=== PATIENT | female | born 1940 | race Caucasian/White ===

== ENCOUNTER 2016-11-15 05:51 | Inpatient (IN) | payer OTHER ==
[2016-10-26 09:33] VITALS: BMI 29.0
--- NOTE | 2016-10-26 10:04 | PAT Medication Instructions ---
Service Date Oct 26, 2016. 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 Instructions For Your Scheduled Surgery - Hold the following medications 2 weeks prior to surgery: Fish Oil (Solon-3), 1,200 MG PO QAM Turmeric (Curcuma Longa) (Turmeric), 500 MG PO QPM - Hold the following medications 7 days prior to surgery per surgeon's instructions: Meloxicam (Mobic), 15 MG PO QAM Naproxen (Aleve), 440 MG PO PRN - Hold the following medications the morning of surgery: B-Complex Vitamins (Vitamin B Complex), 1 TAB PO QAM Ascorbic Acid (Vitamin C), 500 MG PO QAM Sennosides-Docusate Sodium (Stool Softener), 1 TAB PO HS PRN - Take the following medications the morning of surgery with a sip of water OTHERWISE NOTHING TO EAT OR DRINK AFTER MIDNIGHT: Levothyroxine Sodium (Levothyroxine Sodium), 1 TAB PO QAM [Doxycycline], 20 MG PO BID - Take the following medications as scheduled the night before surgery: Sennosides-Docusate Sodium (Stool Softener), 1 TAB PO HS PRN Simvastatin (Zocor), 40 MG PO QPM [Hydrocodone Apap], 1 TAB PO HS PRN Aspirin (Aspirin Ec), 81 MG PO QPM [Doxycycline], 20 MG PO BID If you have any questions please call us at [phone] or [phone] or [phone]
[2016-10-26 10:54] LABS: BASO % 0.2 %; BASO ABS # 0.01 K/uL (0-0.2); COMPLETE YES; EOS % 3.5 %; HEMATOCRIT 42.5 % (37-47); IG% 0.2 %; LYMPH % 24.5 %; LYMPH ABS # 1.34 K/uL (1.2-3.4); MEAN CELL VOLUME 91.4 fL (80-100); MEAN CORPUSCULAR HEMOGLOBIN 31.6 pg (25-34); MEAN CORPUSCULAR HGB CONC 34.6 g/dl (32-36); MEAN PLATELET VOLUME 12.1 fL (7.4-10.4); MONO % 8.4 %; NEUT % 63.2 %; PLATELET COUNT 258 K/uL (130-400); RED BLOOD COUNT 4.65 M/uL (4.2-5.4); WHITE BLOOD COUNT 5.47 K/uL (4.8-10.8)
[2016-10-26 11:06] LABS: URINE APPEARANCE CLEAR (CLEAR); URINE BILIRUBIN NEG (NEG); URINE COLOR YELLOW; URINE NITRITE NEG (NEG); URINE SPECIFIC GRAVITY 1.003 (1.000-1.030); UROBILINOGEN NEG (NEG)
[2016-10-26 11:07] LABS: PARTIAL THROMBOPLASTIN RATIO 1.1; PROTHROMBIN TIME (PATIENT) 10.8 SECONDS (9.0-12.0)
[2016-10-26 11:07] LABS: MANUAL MICROSCOPIC REQUIRED? NO; REVIEW REQ? NO
[2016-10-26 11:13] LABS: ESTIMATED AVERAGE GLUCOSE 114 mg/dl; HA1C FLAG Normal (Normal)
[2016-10-26 11:19] LABS: BUN/CREATININE RATIO 22.2 (10-20); CALCIUM 9.5 mg/dl (8.5-10.1); CREATININE 0.86 mg/dl (0.60-1.20); POTASSIUM 4.4 mmol/L (3.5-5.1)
--- NOTE | 2016-11-14 11:18 | HISTORY & PHYSICAL EXAMINATION ---
DATE OF ADMISSION: 11/15/2016 CHIEF COMPLAINT: Right knee pain. HISTORY OF PRESENT ILLNESS: The patient is a 76-year-old female seen and evaluated in our office for her right knee pain. She had being treated by an outside physician. She had her right knee arthroscopy approximately 6 months ago. She has had subsequent corticosteroid and viscosupplementation injections. She continues to have ongoing pain and disability. She was seen and evaluated in our office and knee arthroplasty was discussed. Due to her ongoing pain and disability, the patient now desires to proceed with right total knee arthroplasty. PAST MEDICAL HISTORY: Hypercholesterolemia and hyperthyroid PAST SURGICAL HISTORY: Right knee arthroscopy. MEDICATIONS: Include B complex, vitamin, fish oil 1000 mg, Meloxicam 15 mg daily, doxycycline hyclate 20 mg, Aleve 220 mg q. 12 hours p.r.n., simvastatin 40 mg daily, aspirin 81 mg daily, hydrocodone p.r.n. pain, and stool softener p.r.n. ALLERGIES: INCLUDE MERCURY. SOCIAL HISTORY AND REVIEW OF SYSTEMS: Noncontributory. PHYSICAL EXAMINATION: GENERAL: Well-nourished, well-developed elderly female who appears her stated age. HEENT: Normocephalic, atraumatic, extraocular movements intact, oropharynx pink and moist. NECK: Supple without adenopathy. LUNGS: Clear to auscultation bilaterally. HEART: Regular rate and rhythm. ABDOMEN: Soft, nontender, nondistended. EXTREMITIES: The upper extremities are within normal limits. The right knee has a valgus alignment. She complains primarily of lateral compartment pain. Her range of motion is from 0-120 degrees. X-RAYS: X-rays were reviewed. She has a valgus-aligned knee. She has bone on bone arthritis of the lateral compartment with complete loss of the joint space. There is mild degenerative change about the medial and patellofemoral compartments as well. ASSESSMENT: Right knee degenerative joint disease. PLAN: Risks versus benefits were discussed and consent was obtained. Will proceed with right total knee arthroplasty upon preop workup and medical clearance. The patient's primary care physician is Dr. Garcia from [facility]. Will proceed as indicated. [facility]ITAL[facility]
[2016-11-15] VITALS (8 sets, daily range): BP systolic 114–158; BP diastolic 67–85; PULSE 62–76; TEMP 36.4–36.8; O2SAT 95–98; Ht 167.6 cm; Wt 81.1 kg
[~2016-11-15] VITALS: Ht 167.6 cm; Wt 81.1 kg
[~2016-11-15 05:51] MED LIST: ASCO1CAP3 PO; ASPI81TA28 PO; B-COTAB18 PO; DOXYCYCLINE PO; HYDROCODONE APAP PO; LEVO88TA3 PO; MELO7.5T5 PO; NAPR1TAB9 PO; NURSING VERBAL MED ORDER STA; OMEG10007 PO; SENNTAB23 PO; SIMV40TA2 PO; TURM1CAP4 PO
[2016-11-15] MEDS ORDERED: LACTATED RINGER'S 1000ML 500 ML IV ONE (06:00)
[2016-11-15] MEDS ORDERED: LACTATED RINGER'S 1000ML 1,000 ML IV SCH (06:00)
[2016-11-15] MEDS ORDERED: BUPIVACAINE 0.5 % 5 MG/1 ML PF 10ML VIAL ONE (06:22)
[2016-11-15] MEDS ORDERED: BUPIVACAINE 0.25% 30 ML VIAL ONE (06:22)
[2016-11-15] MEDS ORDERED: PROPOFOL IV EMULSION 10 MG/ML 20 ML VIAL IV ONE ×2 (06:42→08:44)
[2016-11-15] MEDS ORDERED: MIDAZOLAM HCL 1 MG/ML 2ML VIAL ONE ×2 (06:42)
[2016-11-15] MEDS ORDERED: CEFAZOLIN IV 2,000 MG/60 ML D5W IV ONE (07:11)
--- NOTE | 2016-11-15 07:14 | History & Physical Bridge Note ---
H&P Re-Evaluation Bridge Note: I have examined the patient, reviewed the History & Physical and in the interval since the performance of the History & Physical I have noted the following changes of clinical significance: No changes noted
[2016-11-15] MEDS ORDERED: BACITRACIN 50000 UNIT VIAL ONE (07:15)
[2016-11-15] MEDS ORDERED: POVIDONE-IODINE OP SOLN 30 ML BTL ONE (07:15)
[2016-11-15] MEDS: TRANEXAMIC ACID AMP 1,000 MG in NSS 100ML IV SCH ×2 (07:43→08:30)
[2016-11-15] MEDS ORDERED: ATROPINE SULFATE 0.1 MG/ML 5ML SYR IV PRN (07:45)
[2016-11-15] MEDS ORDERED: ONDANSETRON INJ 2 MG/ML 2 ML VIAL IV PRN (07:45)
[2016-11-15] MEDS ORDERED: FENTANYL CITRATE INJ 50 MCG/1 ML 2 ML VIAL IV PRN (07:45)
[2016-11-15] MEDS ORDERED: EpHEDrine SULFATE INJ 50 MG/ML AMP IV PRN (07:45)
[2016-11-15] MEDS ORDERED: ROPIVACAINE 5MG/ML 30 ML 150 MG, BUPIVACAINE/EPINEPHR 0.5% MPF 30 ML, KETOROLAC TROMETH... INFIL SCH ×7 (08:00)
[2016-11-15] MEDS ORDERED: ONDANSETRON INJ 2 MG/ML 2 ML VIAL ONE (08:20)
--- NOTE | 2016-11-15 09:04 | [facility] Post Operative Brief Note ---
Immediate Operative Summary Operative Date Nov 15, 2016. 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
--- NOTE | 2016-11-15 09:18 | OPERATIVE REPORT ---
DATE OF OPERATION: 11/15/2016 PREOPERATIVE DIAGNOSIS: Osteoarthritis, right knee. POSTOPERATIVE DIAGNOSIS: Osteoarthritis, right knee. PROCEDURE: Right total knee arthroplasty. SURGEON: Dr. Bright. TARGET MAN: ALBERT Spence. ANESTHESIA: Spinal. COMPLICATIONS: None. OPERATION AND FINDINGS: Following induction of spinal anesthesia, the patient's right leg was prepped and draped in the usual sterile manner. Limb was exsanguinated with an Esmarch bandage and tourniquet was inflated to 350 mmHg. A longitudinal incision was made anteriorly. Subcutaneous tissue was sharply dissected. Electrocautery was used for hemostasis. Prepatellar bursa was incised and median parapatellar incision was performed. Patella was everted and the knee was flexed. Fat pad was removed to aid in visualization and the anterior and posterior cruciate ligaments were removed. The medial face of the tibia was cleared of soft tissue first with a Bovie and a Carrillo elevator. This tissue was retracted posteriorly using a blunt Hohmann. A Munoz retractor was used to expose the synovium above on the anterior aspect of the femur and this was removed down to bone. The PSI guide was placed on the distal femur and two pins were placed anteriorly and kept in position and two additional pins were placed distally and removed. The distal femoral cutting block was placed in position and the distal femoral cut was used in the +0 setting. Next, the cutting block was removed and the 3 block was placed in the distal end of the femur. Care was taken to ensure appropriate external rotation and feeler gauge was used to ensure no notching would occur. The femoral block was centered on the distal femur and in the medial and lateral direction and was fixed using two bone screws. The gold pins were then removed. The oscillating saw was used to create the bone cuts and the distal femoral cutting block was removed and the reciprocating saw was used to further trim the femoral cuts as well as a deep in the area for the trochlear groove. Next, posterior condyle remnants were removed. Following this, a meniscal clamp and knife were utilized to remove the anterior portion of both medial and lateral meniscus. The proximal tibia PSI guide was placed into position and the proximal tibial cutting guide was screwed into position. The extra medullary alignment guide was utilized to ensure appropriate alignment. The proximal tibia was cut and the proximal tibial cutting block was removed and this bone fragment was removed. The appropriate guide was used to perform the notch cut on the distal femur and a lamina associate store director and a cochlear knife were utilized to finish both medial and lateral meniscectomies to remove any remnants of the posterior or anterior cruciate ligaments. Following this, the distal femoral component was impacted into position and blunt Efrem was used to sublux the tibia anteriorly. The proximal tibia was sized and a 3 tibial tray was chosen as the size to be used. This was put into position and appropriate external rotation and a double check with extramedullary alignment guide was performed. The canal for the tibial stem was prepared first with a 17 mm drill and then the punch and a mallet and the trial tibial poly was placed. A 9 was chosen the size to be used. It was brought to extension and the patella was prepared with the patellar reamer. A 36 component was chosen the size to be used. The trial component was placed and knee was taken through a full range of motion and there was found to be no lateral subluxation of the tibia. No lateral release was required. The trials were all removed. The final components were obtained and assembled. Cement was mixed. The knee was thoroughly irrigated and the ortho mix was injected about the knee joint. The final components were cemented into position. After thoroughly suctioning and drying the bone ends, all excess cement was removed. The knee was held in extension while the cement hardened. The wound was irrigated and closed over a Hemovac drain. #1 Vicryl was used to close the extensor mechanism. Subcutaneous tissues closed using 0 Dexon. Skin was closed with bhavna. Sterile dressing of Adaptic, 4 x 4's, sterile Webril, and Edgar was applied. The patient tolerated the procedure well, recovery room stable. Due to the complex nature of the procedure, the entire surgery was performed with the operational assistance of ALBERT Spence. The speech assistant, under direct supervision, was involved in the actual performance of all aspects of the surgical procedure including hemostasis, tissue retraction and incision, instrument management, patient positioning, and wound closure. I attest to the content of the Intraoperative Record and any orders documented therein. Any exceptio ns are noted below.
[2016-11-15] MEDS ORDERED: ALUMINUM/MAGNESIUM/SIMETH (MAALOX MAX) 30 ML UDC PO PRN (09:45)
[2016-11-15] MEDS ORDERED: MoRPHine SULFATE 2 MG/ML CARP IV PRN (09:45)
[2016-11-15] MEDS ORDERED: ZOLPIDEM TARTRATE 5 MG TAB PO PRN (09:45)
[2016-11-15] MEDS ORDERED: BISACODYL 10 MG SUPP PR PRN (09:45)
[2016-11-15] MEDS ORDERED: MAGNESIUM HYDROXIDE SUSP 30 ML UDC PO PRN (09:45)
[2016-11-15] MEDS ORDERED: DiphenhydrAMINE HCL 50 MG/ML VIAL IV PRN (09:45)
--- NOTE | 2016-11-15 10:22 | DIAGNOSTIC IMAGING REPORT ---
RIGHT KNEE 1 OR 2 VIEWS ROUTINE CLINICAL HISTORY: AP/LATERAL IN PACU RIGHT KNEE Right pain COMPARISON: None. DISCUSSION: Total joint replacement. Good contact between prosthetic and underlying bone. Surgical drains are in position. Expected soft tissue postoperative change. IMPRESSION: Anatomic alignment status post total right knee replacement Electronically signed by: Lalo Meyer M.D. 11/15/2016 10:21 AM Dictated Date/Time: 11/15/2016 10:20 AM
[2016-11-15] MEDS ORDERED: MoRPHine SULFATE 10 MG/ML CARP/VIAL IV PRN (11:15)
[2016-11-15] MEDS ORDERED: MoRPHine SULFATE 4 MG/ML 1 ML CARP\\VIAL IV PRN ×2 (11:15)
--- NOTE | 2016-11-15 11:28 | Anesthesiology Progress Note ---
Anesthesia Post Op Note Date & Time Nov 15, 2016 at 11:28 Vital Signs Pain Intensity: 0 Vital Signs Past 12 Hours Date Time Temp Pulse Resp B/P Pulse Ox O2 Delivery O2 Flow Rate FiO2 11/15/16 11:15 63 18 136/68 97 Nasal Cannula 2 11/15/16 11:05 60 20 104/72 97 Nasal Cannula 2 11/15/16 10:55 65 16 136/88 98 Nasal Cannula 2 11/15/16 10:45 36.3 68 22 134/69 97 Nasal Cannula 2 11/15/16 10:35 62 18 119/64 96 Nasal Cannula 2 11/15/16 10:25 64 16 123/63 97 Nasal Cannula 2 11/15/16 10:15 36.3 63 16 126/64 98 Nasal Cannula 2 11/15/16 10:05 63 18 124/63 98 Nasal Cannula 2 11/15/16 09:55 64 12 127/59 98 Nasal Cannula 2 11/15/16 09:45 66 18 124/61 98 Nasal Cannula 2 11/15/16 09:39 36.3 71 20 125/61 98 Nasal Cannula 2 11/15/16 06:30 36.7 70 16 158/85 95 Room Air 11/15/16 06:30 36.8 70 16 158/85 95 Room Air 11/15/16 06:30 36.8 70 16 158/85 95 Room Air Notes Mental Status: alert / awake / arousable, participated in evaluation Pt Amnestic to Procedure: Yes Nausea / Vomiting: adequately controlled Pain: adequately controlled Airway Patency, RR, SpO2: stable & adequate BP & HR: stable & adequate Hydration State: stable & adequate Neuraxial Anesthesia: was administered, sensory block is resolving Anesthetic Complications: no major complications apparent
[2016-11-15] MEDS: FERROUS GLUCONATE 324 MG TAB PO SCH ×2 (12:51→18:28)
[2016-11-15] MEDS: D5W AND 1/2NSS + 20MEQ KCL 1,000 ML IV SCH ×2 (12:51→21:42)
[2016-11-15] MEDS: KETOROLAC TROMETHAMINE 15 MG/ML VIAL IV. SCH ×2 (13:36→19:22)
[2016-11-15] MEDS: ACETAMINOPHEN 500 MG TAB PO SCH ×2 (13:36→21:00)
[2016-11-15] MEDS: CEFAZOLIN IV 2,000 MG in DEXTROSE 5% 50ML 50 ML IV SCH ×2 (15:46→23:18)
[2016-11-15] MEDS: DOCUSATE SODIUM 100 MG CAP PO SCH (21:00)
[2016-11-15] MEDS: ASPIRIN 81 MG ECTAB PO SCH (21:00)
[2016-11-15] MEDS: SIMVASTATIN 40 MG TAB PO SCH (21:00)
[2016-11-15] MEDS: SENNA 8.6 MG TAB PO SCH (21:00)
[2016-11-15] MEDS: OXYCODONE HCL 10 MG TABCR (OXYCONTIN) PO SCH (21:00)
[2016-11-15] MEDS: OXYCODONE HCL IR 5 MG TAB (IMMEDIATE RELEASE) PO PRN (21:41)
[2016-11-16] VITALS (9 sets, daily range): BP systolic 124–175; BP diastolic 70–86; PULSE 57–83; TEMP 36.4–36.7; O2SAT 95–100
[2016-11-16] MEDS: KETOROLAC TROMETHAMINE 15 MG/ML VIAL IV. SCH ×4 (01:52→20:13)
[2016-11-16] MEDS: LEVOTHYROXINE 88 MCG TAB PO SCH (05:46)
[2016-11-16] MEDS: ACETAMINOPHEN 500 MG TAB PO SCH ×3 (05:47→21:22)
[2016-11-16 07:09] LABS: MEAN CELL VOLUME 90.2 fL (80-100); MEAN CORPUSCULAR HEMOGLOBIN 30.7 pg (25-34); MEAN PLATELET VOLUME 11.3 fL (7.4-10.4); PLATELET COUNT 246 K/uL (130-400); RED BLOOD COUNT 3.88 M/uL (4.2-5.4); WHITE BLOOD COUNT 11.44 K/uL (4.8-10.8)
[2016-11-16 07:33] LABS: BUN/CREATININE RATIO 20.1 (10-20); CALCIUM 8.3 mg/dl (8.5-10.1); CREATININE 0.83 mg/dl (0.60-1.20); POTASSIUM 4.1 mmol/L (3.5-5.1)
--- NOTE | 2016-11-16 07:33 | Orthopedic Progress Note ---
Orthopedic Progress Note Date of Service Nov 16, 2016. Subjective Post OP Day: 1 Reports: feeling well Objective N/V intact, dressing C/D/I (Hemovac in place), toes mobile Date Time Temp Pulse Resp B/P Pulse Ox O2 Delivery O2 Flow Rate FiO2 11/16/16 03:31 36.5 62 16 131/71 97 Room Air 11/15/16 23:26 36.6 64 16 131/68 96 Room Air 11/15/16 19:20 Room Air 11/15/16 19:20 36.5 76 16 136/76 96 Room Air 11/15/16 15:00 36.6 65 16 116/74 98 Nasal Cannula 2.0 11/15/16 14:00 36.4 65 16 114/67 98 2.0 11/15/16 12:56 36.6 68 16 118/71 95 Nasal Cannula 2.0 11/15/16 12:29 36.4 62 16 123/73 98 2.0 11/15/16 12:00 98 Nasal Cannula 2.0 11/15/16 12:00 98 Nasal Cannula 2.0 11/15/16 12:00 36.6 69 16 152/82 98 Nasal Cannula 2.0 11/15/16 11:45 36.4 66 14 135/66 97 Nasal Cannula 2 11/15/16 11:35 66 12 138/72 97 Nasal Cannula 2 11/15/16 11:25 36.4 64 18 138/64 98 Nasal Cannula 2 11/15/16 11:15 63 18 136/68 97 Nasal Cannula 2 11/15/16 11:05 60 20 104/72 97 Nasal Cannula 2 11/15/16 10:55 65 16 136/88 98 Nasal Cannula 2 11/15/16 10:45 36.3 68 22 134/69 97 Nasal Cannula 2 11/15/16 10:35 62 18 119/64 96 Nasal Cannula 2 11/15/16 10:25 64 16 123/63 97 Nasal Cannula 2 11/15/16 10:15 36.3 63 16 126/64 98 Nasal Cannula 2 11/15/16 10:05 63 18 124/63 98 Nasal Cannula 2 11/15/16 09:55 64 12 127/59 98 Nasal Cannula 2 11/15/16 09:45 66 18 124/61 98 Nasal Cannula 2 11/15/16 09:39 36.3 71 20 125/61 98 Nasal Cannula 2 Laboratory Results 24 Hours: Test 11/16/16 06:35 Hematocrit 35.0 % Hemoglobin 11.9 g/dL Additional Notes: Bun/Cr pending Assessment & Plan Assessment: 76 yo female stable POD #1 s/p right TKA Plan: 1. Med management 2. DVT prophylaxis- ASA, TEDs, SCDs 3. P/OT 4. D/C planning- pt interested in [facility]
--- NOTE | 2016-11-16 07:34 | Discharge Instructions ---
Discharge Instructions Date of Service Nov 16, 2016. Admission Reason for Admission: Right Knee Osteoarthritis Discharge Discharge Diagnosis / Problem: Right knee arthritis Discharge Goals Goal(s): Decrease discomfort, Improve function Activity Recommendations Activity Limitations: per Instructions/Follow-up section Weightbearing Status: Right weightbearing (as tolerated) . Instructions / Follow-Up Instructions / Follow-Up ACTIVITY RECOMMENDATIONS: SELF CARE INSTRUCTIONS AFTER TOTAL KNEE REPLACEMENT A. You may need to continue a physical therapy program after discharge from the hospital. There are several options available to you. Your doctor will assist you in selecting the best one for you. 1. An out-patient facility 2 to 3 times a week for therapy or home therapy. 2. Continue working on all exercises taught to you in the hospital. Your goals should be to increase bending of your knee to 90 degrees and beyond and to fully straighten your knee. B. You may progress at your own pace from walking with a walker or crutches to a cane; then to no assistive devices. C. Make walking a part of your daily routine. Be up as much as comfortable with rest periods throughout the day. Rest with leg elevation is very important. Use the ice wrap frequently for the first 3-4 weeks. D. There are no restrictions on activities. You may ride in a car, shop, participate in guide delegate and all social activities. E. Wear the long elastic stockings (TERRI hose) 20 hours a day for 2 weeks after surgery. They can be removed several times a day for laundering and for a bath. F. You may shower, no tub baths until cleared by your doctor. SPECIAL CARE INSTRUCTIONS: VERY IMPORTANT TO READ AND REVIEW A. There are a few signs you need to watch for after you are home. Call [facility] if you notice any of the followin. Increased severe knee pain. Some pain is expected especially when you exercise. 2. Increased swelling in your leg or knee; pain or swelling of the calf muscle in either lower leg. 3. Any fluid drainage from the incision. 4. Shortness of breath or chest pain. B. Please call [facility] at if you have any concerns or questions about your operation or recovery. The doctor or his nurse will return your call promptly. C. You must take antibiotics before dental work, bladder, bowel or other surgery. Your doctor will provide you with a permanent care to carry describing this precaution. IMPORTANT: * REMEMBER TO TAKE ASPIRIN, 81 MG, TWICE DAILY FOR 4 WEEKS UNLESS OTHERWISE DIRECTED. THIS IS YOUR BLOOD THINNER. * HIGH RISK PATIENTS MAY BE PRESCRIBED A STRONGER BLOOD THINNER. THIS WILL BE PROVIDED AT DISCHARGE. * CALL IF INCREASED PAIN, REDNESS, DRAINAGE OR FEVER GREATER THAT 101. * WEAR TERRI HOSE 20 HOURS PER DAY FOR 2 WEEKS. Silverlon- This is a large adhesive bandage that contains silver ions. This helps your incision heal by fighting off bacteria and protecting it from the outside environment. You are permitted to shower with this dressing. This will remain on your incision for 7 days and then should be removed. Some visible blood or drainage through the dressing window is normal. If there is significant drainage or leaking noted before the 7 days notify your doctor's office immediately. Once removed, keep incision clean and dry. If there is any drainage or redness noted, please call your surgeon. FOLLOW UP VISIT: If appointment is not already scheduled: Please call [facility] to make a follow-up appointment for 2 weeks after your surgery at . FOLLOW UP WITH YOUR PRIMARY CARE PHYSICIAN IN 1 WEEK FOR BLOOD PRESSURE CHECK Current Hospital Diet Patient's current hospital diet: Regular Diet Discharge Diet Recommended Diet: Regular Diet Procedures Procedures Performed: right tka Pending Studies Studies pending at discharge: no Laboratory Results Hemoglobin A1c Test 10/26/16 10:11 Range/Units Estimated Average Glucose 114 mg/dl Hemoglobin A1c 5.6 4.5-5.6 % Medical Emergencies . Who to Call and When: Medical Emergencies: If at any time you feel your situation is an emergency, please call 911 immediately. . Non-Emergent Contact Non-Emergency issues call your: Surgeon Call Non-Emergent contact if: temperature is above 101.5, your pain is not controlled, wound has increased drainage, wound has increased redness . "Provider Documentation" section prepared by Aj Reyez PA-C. VTE Core Measure Inpt VTE Proph given/why not?: Other Anticoagulation (ASA 81mg bid), T.E.D. Stockings, SCD's [place] Drug Monitoring Program Search Results: patient reviewed within database, no issues identified
[2016-11-16] MEDS: ONDANSETRON INJ 2 MG/ML 2 ML VIAL IV PRN ×2 (08:03→13:39)
[2016-11-16] MEDS: ASPIRIN 81 MG ECTAB PO SCH ×2 (08:28→21:21)
[2016-11-16] MEDS: FERROUS GLUCONATE 324 MG TAB PO SCH ×3 (08:28→17:49)
[2016-11-16] MEDS: DOCUSATE SODIUM 100 MG CAP PO SCH ×2 (08:28→21:22)
[2016-11-16] MEDS: MULTIVITAMIN TAB PO SCH (08:28)
[2016-11-16] MEDS: VITAMIN B COMPLEX TAB PO SCH (08:28)
[2016-11-16] MEDS: PANTOprazole SOD 40 MG TAB PO SCH (08:29)
[2016-11-16] MEDS: OXYCODONE HCL 10 MG TABCR (OXYCONTIN) PO SCH ×2 (08:29→21:20)
[2016-11-16] MEDS ORDERED: PROMETHAZINE HCL INJ 25 MG in SODIUM CHLORIDE 0.9% 50ML 50 ML IV PRN (14:00)
[2016-11-16] MEDS ORDERED: NURSING VERBAL MED ORDER ONE (14:00)
[2016-11-16] MEDS: OXYCODONE HCL IR 5 MG TAB (IMMEDIATE RELEASE) PO PRN (17:49)
[2016-11-16] MEDS: SIMVASTATIN 40 MG TAB PO SCH (21:21)
[2016-11-16] MEDS: SENNA 8.6 MG TAB PO SCH (21:21)
[2016-11-16] MEDS: CeleBREX 200 MG CAP PO SCH (21:22)
[2016-11-17 01:28] VITALS: BP 126/67; PULSE 60
[2016-11-17] MEDS: KETOROLAC TROMETHAMINE 15 MG/ML VIAL IV. SCH (01:28)
[2016-11-17] MEDS: LEVOTHYROXINE 88 MCG TAB PO SCH (05:28)
[2016-11-17] MEDS: ACETAMINOPHEN 500 MG TAB PO SCH ×3 (05:28→21:12)
[2016-11-17 07:01] VITALS: BP 134/77; PULSE 63; TEMP 36.4; O2SAT 96
[2016-11-17] MEDS: FERROUS GLUCONATE 324 MG TAB PO SCH ×3 (07:34→17:50)
[2016-11-17] MEDS: ASPIRIN 81 MG ECTAB PO SCH ×2 (07:34→21:10)
[2016-11-17] MEDS: MULTIVITAMIN TAB PO SCH (07:35)
[2016-11-17] MEDS: DOCUSATE SODIUM 100 MG CAP PO SCH ×2 (07:35→19:37)
[2016-11-17] MEDS: PANTOprazole SOD 40 MG TAB PO SCH (07:35)
[2016-11-17] MEDS: VITAMIN B COMPLEX TAB PO SCH (07:35)
[2016-11-17] MEDS: CeleBREX 200 MG CAP PO SCH ×2 (07:36→21:11)
[2016-11-17] MEDS: OXYCODONE HCL 10 MG TABCR (OXYCONTIN) PO SCH ×2 (07:40→21:12)
--- NOTE | 2016-11-17 08:17 | Orthopedic Progress Note ---
Orthopedic Progress Note Date of Service Nov 17, 2016. Subjective Post OP Day: 2 Reports: feeling well, pain controlled w PO medications, Denies: SOB, calf pain , chest pain, complaints, light headedness, nausea / vomiting Additional Notes: Patient feels well. She would like to stay close to home for a intermediate facility. Awaiting call to [facility] to see if they have a bed available and her insurance will be taken. Objective calves soft nontender, N/V intact, capillary refill less than 2 sec., dressing C /D/I, A&O x3, toes mobile Date Time Temp Pulse Resp B/P Pulse Ox O2 Delivery O2 Flow Rate FiO2 11/17/16 07:32 Room Air 11/17/16 07:01 36.4 63 18 134/77 96 Room Air 11/17/16 01:28 60 126/67 11/16/16 23:15 Room Air 11/16/16 23:08 36.4 67 18 156/81 95 Room Air 11/16/16 20:19 147/77 11/16/16 16:02 36.4 83 17 175/72 97 Room Air 11/16/16 15:30 Room Air 11/16/16 14:14 62 149/80 100 Room Air 11/16/16 11:32 36.5 58 18 124/74 98 Room Air 11/16/16 09:45 57 97 11/16/16 09:29 97 Room Air 11/16/16 08:30 Room Air Assessment & Plan Assessment: 76 yo female stable POD #2 s/p right TKA Plan: 1. Med management 2. DVT prophylaxis- ASA, TEDs, SCDs 3. P/OT 4. D/C planning- pt interested in [facility] Awaiting call to [facility] to see if they have a bed available and her insurance will be taken. Discharge Planning Discharge Planning: intermediate facility DVT Prophylaxis: ASA Therapy: Physical Therapy
[2016-11-17 15:15] VITALS: BP 128/71; PULSE 62; TEMP 36.4; O2SAT 99
[2016-11-17] MEDS: SENNA 8.6 MG TAB PO SCH (19:37)
[2016-11-17] MEDS: SIMVASTATIN 40 MG TAB PO SCH (21:10)
[2016-11-17 23:20] VITALS: BP 149/74; PULSE 71; TEMP 36.5; O2SAT 97
[2016-11-18] MEDS: LEVOTHYROXINE 88 MCG TAB PO SCH (05:21)
[2016-11-18] MEDS: ACETAMINOPHEN 500 MG TAB PO SCH ×3 (05:22→20:57)
[2016-11-18 06:45] VITALS: BP 146/80; PULSE 85; TEMP 37; O2SAT 95
[2016-11-18 06:49] VITALS: BP 139/74; PULSE 66; TEMP 36.6; O2SAT 98
[2016-11-18] MEDS: FERROUS GLUCONATE 324 MG TAB PO SCH ×3 (07:34→17:29)
[2016-11-18] MEDS: CeleBREX 200 MG CAP PO SCH ×2 (07:34→20:56)
[2016-11-18] MEDS: MULTIVITAMIN TAB PO SCH (07:34)
[2016-11-18] MEDS: VITAMIN B COMPLEX TAB PO SCH (07:34)
[2016-11-18] MEDS: ASPIRIN 81 MG ECTAB PO SCH ×2 (07:35→20:55)
[2016-11-18] MEDS: DOCUSATE SODIUM 100 MG CAP PO SCH ×2 (07:35→20:55)
[2016-11-18] MEDS: PANTOprazole SOD 40 MG TAB PO SCH (07:35)
[2016-11-18] MEDS: OXYCODONE HCL 10 MG TABCR (OXYCONTIN) PO SCH ×2 (07:38→20:55)
--- NOTE | 2016-11-18 07:50 | Orthopedic Progress Note ---
Orthopedic Progress Note Date of Service Nov 18, 2016. Subjective Post OP Day: 3 Reports: feeling well, pain controlled w PO medications, Denies: SOB, calf pain , chest pain, complaints, light headedness, nausea / vomiting Additional Notes: Patient states that she would like to go to [facility] for her rehab because it is closer to her home. She was accepted into [facility] but does not want to go there. [facility] will not accept her till Saturday once cleared by insurance. Objective calves soft nontender, N/V intact, capillary refill less than 2 sec., dressing C /D/I, A&O x3, toes mobile Date Time Temp Pulse Resp B/P Pulse Ox O2 Delivery O2 Flow Rate FiO2 11/18/16 07:32 Room Air 11/18/16 06:49 36.6 66 16 139/74 98 Room Air 11/17/16 23:20 36.5 71 16 149/74 97 Room Air 11/17/16 19:42 Room Air 11/17/16 15:45 Room Air 11/17/16 15:15 36.4 62 14 128/71 99 Room Air Assessment & Plan Assessment: 76 yo female stable POD #3 s/p right TKA Plan: 1. Med management 2. DVT prophylaxis- ASA, TEDs, SCDs 3. P/OT 4. D/C planning- pt interested in [facility] Patient will be going to [facility] once approved by insurance company which would be Saturday. Inhouse Planning Pain Management: Celebrex, Oxycontin, Oxy IR DVT Prophylaxis: TEDs, SCDs, ASA Discharge Planning Discharge Planning: intermediate facility ([facility] - will hopefully be approved on Saturday) DVT Prophylaxis: ASA Therapy: Physical Therapy
[2016-11-18 08:26] VITALS: PULSE 87; O2SAT 99
[2016-11-18 14:54] VITALS: BP 118/70; PULSE 60; TEMP 36.4; O2SAT 98
[2016-11-18] MEDS: OXYCODONE HCL IR 5 MG TAB (IMMEDIATE RELEASE) PO PRN (17:30)
[2016-11-18] MEDS: SENNA 8.6 MG TAB PO SCH (20:56)
[2016-11-18] MEDS: SIMVASTATIN 40 MG TAB PO SCH (20:56)
[2016-11-18 23:15] VITALS: BP 171/72; PULSE 75; TEMP 36.6; O2SAT 97
[2016-11-19] VITALS (8 sets, daily range): BP systolic 131–162; BP diastolic 70–83; PULSE 62–80; TEMP 36.3–36.9; O2SAT 94–100
[2016-11-19] MEDS: LEVOTHYROXINE 88 MCG TAB PO SCH (05:34)
[2016-11-19] MEDS: ACETAMINOPHEN 500 MG TAB PO SCH ×3 (05:34→21:07)
[2016-11-19] MEDS: FERROUS GLUCONATE 324 MG TAB PO SCH ×3 (08:12→17:18)
[2016-11-19] MEDS: CeleBREX 200 MG CAP PO SCH ×2 (08:13→21:07)
[2016-11-19] MEDS: DOCUSATE SODIUM 100 MG CAP PO SCH ×2 (08:14→21:06)
[2016-11-19] MEDS: ASPIRIN 81 MG ECTAB PO SCH ×2 (08:14→21:06)
[2016-11-19] MEDS: MULTIVITAMIN TAB PO SCH (08:15)
[2016-11-19] MEDS: OXYCODONE HCL 10 MG TABCR (OXYCONTIN) PO SCH (08:16)
[2016-11-19] MEDS: VITAMIN B COMPLEX TAB PO SCH (08:16)
[2016-11-19] MEDS: PANTOprazole SOD 40 MG TAB PO SCH (08:16)
[2016-11-19] MEDS: ONDANSETRON INJ 2 MG/ML 2 ML VIAL IV PRN ×2 (09:24→17:22)
--- NOTE | 2016-11-19 10:34 | Orthopedic Progress Note ---
Orthopedic Progress Note Date of Service Nov 19, 2016. Subjective Post OP Day: 4 Reports: nausea / vomiting, Denies: SOB, calf pain, chest pain, light headedness Additional Notes: Pt lying in bed with cool cloth on her forehead. States she is nauseated and started after PT. She had taken her meds this AM prior to PT including Oxycontin/OxyIR. Pt had a large BM on Saturday. States she's passing a small amount of gas. No overt abdominal pain. BP's running on the higher side with SBP's. No hypotension. Had an episode of 1 emesis Saturday morning. Then was nauseated after lunch. Nothing since that time. Has nausea at home with a narcotic that she cannot remember the name of after her arthroscopy. Objective calves soft nontender, N/V intact, dressing C/D/I, A&O x3, toes mobile Abdomen, soft ,NT; BS p/a x 4. No rushes Date Time Temp Pulse Resp B/P Pulse Ox O2 Delivery O2 Flow Rate FiO2 11/19/16 07:55 36.3 80 16 162/82 99 Room Air 11/19/16 07:23 Room Air 11/19/16 06:49 36.5 72 18 153/72 96 Room Air 11/19/16 03:35 68 143/77 94 11/18/16 23:15 36.6 75 16 171/72 97 Room Air 11/18/16 19:45 Room Air 11/18/16 15:45 Room Air 11/18/16 14:54 36.4 60 16 118/70 98 Room Air Assessment & Plan Assessment: 76 yo female stable POD #4 s/p right TKA Nausea Plan: Nausea may likely be due to Narcotics; Will hold Oxycontin/OxyIR at this time. Will add Tramadol and Toradol. Continue Tylenol and Celebrex. PT as able BP's fluctuating since admission. Will follow. If continue to maintain higher BP's, consult Med Service. Will see how she is responding to new meds later today. Still possible for her to go to SNF but may need to wait until tomorrow. Inhouse Planning Pain Management: Celebrex, Toradol, Ultram, PO Tylenol DVT Prophylaxis: TEDs, SCDs, ASA Discharge Planning Discharge Planning: [facility] facility ([facility] if approved) DVT Prophylaxis: ASA Therapy: Physical Therapy
[2016-11-19] MEDS: SENNA 8.6 MG TAB PO SCH (21:06)
[2016-11-19] MEDS: SIMVASTATIN 40 MG TAB PO SCH (21:07)
[2016-11-20] MEDS: ACETAMINOPHEN 500 MG TAB PO SCH ×2 (06:08→13:46)
[2016-11-20] MEDS: LEVOTHYROXINE 88 MCG TAB PO SCH (06:08)
[2016-11-20 07:15] VITALS: BP 167/80; PULSE 65; TEMP 36.3; O2SAT 98
[2016-11-20] MEDS: ONDANSETRON INJ 2 MG/ML 2 ML VIAL IV PRN (07:19)
[2016-11-20] MEDS ORDERED: TRAM-10 PO (07:35)
[2016-11-20] MEDS ORDERED: CLB200 PO (07:35)
[2016-11-20] MEDS ORDERED: ACET-1138 PO (07:35)
[2016-11-20] MEDS ORDERED: ASPI81TA28 PO (07:35)
[2016-11-20] MEDS ORDERED: SNK PO (07:35)
[2016-11-20] MEDS ORDERED: TRAMADOL HCL 50 MG TAB PO PRN (07:45)
--- NOTE | 2016-11-20 07:53 | Orthopedic Progress Note ---
Orthopedic Progress Note Date of Service Nov 20, 2016. Subjective Post OP Day: 5 Reports: nausea / vomiting, Denies: SOB, calf pain, chest pain, light headedness Additional Notes: States she received some Morphine last night for pain and now has nausea this AM. No other complaints. Pain controlled this AM. Objective calves soft nontender, N/V intact, dressing C/D/I, A&O x3, toes mobile Date Time Temp Pulse Resp B/P Pulse Ox O2 Delivery O2 Flow Rate FiO2 11/19/16 23:50 36.6 62 16 149/76 97 Room Air 11/19/16 23:45 Room Air 11/19/16 23:15 36.5 71 18 161/76 97 Room Air 11/19/16 15:19 36.8 68 16 131/70 96 Room Air 11/19/16 15:00 Room Air 11/19/16 11:50 36.9 68 15 153/83 100 Room Air 11/19/16 10:44 99 Room Air 11/19/16 07:55 36.3 80 16 162/82 99 Room Air Assessment & Plan Assessment: 76 yo female stable POD #4 s/p right TKA Nausea Plan: Nausea returns with Morphine use. Will hold all narcotics from here on out. Tramadol ordered. Continue Celebrex and Tylenol Antiemetics given for nausea Plan for dc today when nausea subsides. Inhouse Planning Pain Management: Celebrex, Ultram, PO Tylenol DVT Prophylaxis: TEDs, SCDs, ASA Discharge Planning Discharge Planning: long-term facility ([place] if approved) Pain Management: Celebrex, Ultram, PO Tylenol DVT Prophylaxis: TEDs, ASA Therapy: Physical Therapy
[2016-11-20] MEDS: FERROUS GLUCONATE 324 MG TAB PO SCH ×2 (08:27→12:23)
[2016-11-20] MEDS: DOCUSATE SODIUM 100 MG CAP PO SCH (08:41)
[2016-11-20] MEDS: CeleBREX 200 MG CAP PO SCH (08:41)
[2016-11-20] MEDS: VITAMIN B COMPLEX TAB PO SCH (08:42)
[2016-11-20] MEDS: PANTOprazole SOD 40 MG TAB PO SCH (08:42)
[2016-11-20] MEDS: ASPIRIN 81 MG ECTAB PO SCH (08:42)
[2016-11-20] MEDS: MULTIVITAMIN TAB PO SCH (08:42)
[2016-11-20 09:47] VITALS: BP 167/80; PULSE 65; TEMP 36.3; O2SAT 98
[2016-11-20 11:55] VITALS: BP 154/73; PULSE 71; TEMP 36.5; O2SAT 95
--- NOTE | 2016-11-26 13:32 | DISCHARGE SUMMARY ---
DISCHARGE DIAGNOSIS: Degenerative joint disease, right knee. SECONDARY DIAGNOSES: Hypercholesterolemia and hypothyroidism. CONSULTS: None. COMPLICATIONS: None. PROCEDURES: Right total knee arthroplasty performed by Dr. Bright on 11/15/2016. BRIEF HISTORY: As dictated in history and physical. HOSPITAL SUMMARY: The patient was admitted on the above date and had the above-noted surgery performed, which she tolerated well. On the first postoperative day, she was feeling well. Neurovascularly intact. Dressings clean, dry and intact. Toes were mobile. Vital signs were stable. She is afebrile. Hemoglobin was 11.9 and she was started on physical therapy protocol and continued on DVT prophylaxis and pain management. By her second postoperative day, pain was controlled and she had no complaints. She was hoping to go to a usp facility and awaiting a call to [facility] to see if there is a bed available and her insurance will be taken. Calves were soft and nontender, neurovascularly intact. Dressings clean, dry and intact. Toes were mobile. Vital signs were stable. She was continued on her protocol. By her third postoperative day, it was found that the [place] [facility] facility did not have either a bed available, the patient decided not to go there and chose [facility] nursing [facility], but they would not accept her until Saturday once cleared by insurance due to being on the weekend. Calves were soft and nontender, neurovascularly intact. Dressings clean, dry and intact. Toes were mobile. Vital signs were stable. She was afebrile. By 11/19/2016, she was lying in bed and had a cool cloth on her forehead. She was nauseated, which started after her physical therapy. She had taken her meds that morning prior to PT including OxyContin and OxyIR. She stated she had a large bowel movement on Saturday and she is passing small amount of gas. No overt abdominal pain. Blood pressures were running a little bit on the higher side with her systolic blood pressures, but no hypotension. She had an episode of emesis on Saturday morning and that was nauseated after lunch, but nothing since that time. She stated that she had nauseated at home with the narcotics, that she could not remember the name of and after her arthroscopy that she has had. Calves were soft and nontender, neurovascularly intact. Dressings clean, dry and intact. Toes were mobile. Abdomen is soft and nontender. Bowel sounds are present x4. There are no rashes. Vital signs are stable. She is afebrile. SBP was 162 and it was felt that her nausea was likely due to her narcotics. OxyContin and OxyIR were going to be held. Tramadol and Toradol added and continue Tylenol and Celebrex. By her fifth postoperative day, she was having some nausea, had received some morphine the previous night and was nauseated that morning. She had no other complaints. She was continued on her protocol. SBP was 149 and it was noted that her nausea returned with morphine used. Plans were to hold all narcotics and tramadol had been ordered. She continued on Celebrex and Tylenol. Antiemetics were given. By later that day, she was remaining stable and could be transferred to [facility] for further physical therapy and care. For further review, please see chart. LAB AND X-RAY DATA: As per chart. DISCHARGE INSTRUCTIONS: The patient was discharged to [facility] on 11/20/2016 in stable condition. DIET: Regular. ACTIVITY: Weightbearing as tolerated right lower extremity. Follow TK instruction sheets and special care instructions as noted. Follow up with [facility] in 2 weeks. The patient is to call for appointment if one has not been made for you. Also, follow up with your primary care physician in 1 week for blood pressure check. DISCHARGE MEDICATIONS: Acetaminophen 1000 mg p.o. q. 8 hours, Celebrex 200 mg p.o. b.i.d., senna 17.2 mg at bedtime, tramadol 50-100 mg p.o. q. 4 hours p.r.n., resume taking vitamin C 500 mg p.o. q.a.m., vitamin B complex 1 tab p.o. q.a.m., fish oil 1200 mg p.o. q.a.m., levothyroxine 88 mcg p.o. q.a.m., stool softener 1 tab p.o. at bedtime, simvastatin 40 mg p.o. q.p.m., turmeric 500 mg p.o. q.p.m. and doxycycline 20 mg p.o. b.i.d. as directed, aspirin 81 mg p.o. b.i.d. for 30 days and then after 30 days, resume your once daily dosing. Stop taking Meloxicam, naproxen and hydrocodone.
== END 2016-11-20 14:32 | DRG 470 ==
LOC: ENRESERVTM → ENRESERVDT → C.ACU 05:51 → C.3E 12:13
PROC: 0SRC0J9 Replacement of Right Knee Joint with Synthetic Substitute, Cemented, Open Approach (ICD-10-PCS; principal; 2016-11-15 08:00)
DX: M17.11 Unilateral primary osteoarthritis, right knee (principal); E78.00 Pure hypercholesterolemia, unspecified; Z79.82 Long term (current) use of aspirin; Z79.899 Other long term (current) drug therapy